=== PATIENT | female | born 1970 | race Asian ===

== ENCOUNTER 2017-02-07 10:16 | Inpatient (IN) | payer OTHER ==
[~2017-02-07] VITALS: Ht 152.4 cm; Wt 88.8 kg
[2017-02-07] MEDS ORDERED: ALBUTEROL/IPRATROPIUM 2.5MG/0.5MG, 3 ML NPPB ONE ×2 (11:00→12:30)
[2017-02-07] MEDS ORDERED: SODIUM CHLORIDE FLUSH 10ML SYR IVF ONE (11:00)
[2017-02-07] MEDS ORDERED: SODIUM CHLORIDE 0.9% 1,000ML IVBOLUS ONE (11:00)
[2017-02-07 11:45] LABS: HEMOGLOBIN 14.7 g/dL (11.7-16.4); WHITE BLOOD COUNT 18.5 x10^3/uL (3.4-10)
[2017-02-07 11:54] LABS: BLOOD UREA NITROGEN 12 mg/dL (7-18)
[2017-02-07 11:59] LABS: DIFF TOTAL CELLS COUNTED 100 CELL DIFF
[2017-02-07] MEDS ORDERED: ETOMIDATE 40 MG/20 ML ONE (12:00)
[2017-02-07] MEDS ORDERED: VECURONIUM 10 MG ONE (12:00)
[2017-02-07] MEDS ORDERED: SUCCINYLCHOLINE 20 MG/ML, 10ML ONE (12:00)
[2017-02-07] MEDS ORDERED: PROPOFOL 10 MG/ML, 100ML IV ONE (12:00)
[2017-02-07] MEDS ORDERED: DEXTROSE 5% IV ONE (12:30)
[2017-02-07] MEDS ORDERED: MAGNESIUM SULFATE IV ONE (12:30)
[2017-02-07 12:34] LABS: VERIFY COUNTS? YES
[2017-02-07 12:35] LABS: ANISOCYTOSIS 1+; POLYCHROMASIA 1+
[2017-02-07] MEDS ORDERED: ALBUTEROL SULFATE 2.5 MG/3 ML NPPB ONE (14:00)
[2017-02-07] MEDS ORDERED: SIMV20TA3 PO (14:04)
[2017-02-07] MEDS ORDERED: LOSA50TA6 PO (14:04)
[2017-02-07] MEDS ORDERED: RACEPINEPHRINE INH 2.25%, 0.5ML ONE (15:07)
[2017-02-07] MEDS ORDERED: methylPREDNISolone SOD SUCC 125 MG/2 ML ONE (15:22)
[2017-02-07] MEDS ORDERED: ONDANSETRON 2MG/ML, 2ML ONE (15:26)
[2017-02-07] MEDS ORDERED: methylPREDNISolone SOD SUCC 125 MG/2 ML IVP ONE (16:00)
[2017-02-07] MEDS ORDERED: RACEPINEPHRINE INH 2.25%, 0.5ML NPPB ONE (16:00)
[2017-02-07] MEDS ORDERED: LORazepam 2 MG/ML, 1ML IVPush PRN (16:00)
[2017-02-07] MEDS ORDERED: ONDANSETRON 2MG/ML, 2ML IVPush PRN (16:00)
[2017-02-07] MEDS ORDERED: ONDANSETRON 2MG/ML, 2ML IVPush ONE (16:00)
[2017-02-07] MEDS ORDERED: OXYcodone IR 5MG TABLET PO PRN (16:00)
[2017-02-07] MEDS ORDERED: ACETAMINOPHEN 325 MG TABLET PO PRN (16:00)
[2017-02-07] MEDS ORDERED: morphine SULFATE 10 MG/ML, 1ML IVPush PRN (16:00)
[2017-02-07 16:15] LABS: ABG COLLECTION SITE LEFT RADIAL; COLLATERAL CIRCULATION TESTING NORMAL
[2017-02-07] MEDS ORDERED: ENOXAPARIN 40 MG/0.4 ML ONE (16:38)
[2017-02-07 16:42] LABS: ASPARTATE AMINO TRANSFERASE 11 U/L (15-37); IS PT STATUS REG ER OR PRE ER? YES
[2017-02-07] MEDS ORDERED: methylPREDNISolone SOD SUCC 125 MG/2 ML IVPush SCH (17:00)
[2017-02-07] MEDS ORDERED: ENALAPRILAT 1.25 MG/ML, 2ML ONE (17:42)
[2017-02-07] MEDS: ENALAPRILAT 1.25 MG/ML, 2ML IVPush PRN ×2 (17:45→21:11)
[2017-02-07] MEDS: DOXYCYCLINE 100 MG in DEXTROSE 5% 250 ML IV SCH (17:45)
[2017-02-07] MEDS: ENOXAPARIN 40 MG/0.4 ML SQ SCH (17:45)
[2017-02-07] MEDS ORDERED: LORazepam 2 MG/ML, 1ML ONE (18:02)
[2017-02-07] MEDS ORDERED: VECURONIUM 10 MG IVPush ONE ×2 (19:00→20:00)
[2017-02-07] MEDS ORDERED: ALBUTEROL/IPRATROPIUM 2.5MG/0.5MG, 3 ML NPPB SCH (19:00)
[2017-02-07] MEDS ORDERED: SUCCINYLCHOLINE 20 MG/ML, 10ML IVPush ONE (19:00)
[2017-02-07] MEDS ORDERED: ETOMIDATE 40 MG/20 ML IVPush ONE (19:00)
[2017-02-07] MEDS ORDERED: ALBUTEROL 0.5%, 20ML ONE (19:04)
[2017-02-07] MEDS: PROPOFOL 100 ML IV PRN ×3 (19:17→22:04)
[2017-02-07 19:21] LABS: ABG COLLECTION SITE LEFT RADIAL
[2017-02-07 19:22] LABS: COLLATERAL CIRCULATION TESTING NORMAL
[2017-02-07] MEDS ORDERED: FENTANYL PF 100 MCG/2ML ONE (19:27)
[2017-02-07] MEDS ORDERED: FENTANYL PF 100 MCG/2ML IVPush ONE (19:30)
[2017-02-07] MEDS ORDERED: VECURONIUM 50 MG in SODIUM CHLORIDE 0.9% 250 ML IV PRN ×2 (19:51→20:00)
[2017-02-07] MEDS ORDERED: LIDOCAINE-MPF 1%, 2ML ENDO PRN (20:00)
[2017-02-07] MEDS ORDERED: PHARMACY MAY ADJ FOR RENAL FX MC SCH (20:00)
[2017-02-07] MEDS ORDERED: ALBUTEROL/IPRATROPIUM 2.5MG/0.5MG, 3 ML INLINE SCH (20:00)
[2017-02-07] MEDS: SODIUM CHLORIDE FLUSH 10ML SYR IVF SCH (21:00)
[2017-02-07] MEDS: SIMVASTATIN 20 MG TABLET PO SCH (21:00)
[2017-02-07] MEDS: FAMOTIDINE 20 MG/2 ML IVPush SCH (21:12)
[2017-02-07] MEDS: SODIUM CHLORIDE 0.9% 1,000 ML IV SCH (21:14)
[2017-02-07] MEDS: FENTANYL PF 2,500 MCG in SODIUM CHLORIDE 0.9% 200 ML IV PRN (21:34)
[2017-02-07] MEDS: ALBUTEROL SULFATE 2.5 MG/3 ML NPPB SCH (22:45)
[2017-02-07] MEDS ORDERED: SODIUM BICARB 8.4%, 50ML SYRINGE ONE (23:27)
[2017-02-07] MEDS ORDERED: SODIUM BICARB 8.4%, 50ML SYRINGE IVPush ONE (23:30)
[2017-02-07] MEDS: methylPREDNISolone SOD SUCC 125 MG/2 ML IVPush SCH (23:50)
[2017-02-08 00:19] LABS: DAU SCREEN DISCLAIMER
[2017-02-08 00:43] LABS: RAPID INFLUENZA A Negative (Negative); RAPID INFLUENZA B Negative (Negative)
[2017-02-08] MEDS: ALBUTEROL SULFATE 2.5 MG/3 ML NPPB SCH ×7 (03:00→22:18)
[2017-02-08 03:56] VITALS: BP 159/86
[2017-02-08] MEDS: methylPREDNISolone SOD SUCC 125 MG/2 ML IVPush SCH ×4 (05:21→22:43)
[2017-02-08 06:10] LABS: HEMATOCRIT 40.2 % (34.6-47.8); HEMOGLOBIN 13.7 g/dL (11.7-16.4); WHITE BLOOD COUNT 18.8 x10^3/uL (3.4-10)
[2017-02-08 06:11] LABS: ABG COLLECTION SITE RIGHT RADIAL; COLLATERAL CIRCULATION TESTING NORMAL
[2017-02-08] MEDS: DOXYCYCLINE 100 MG in DEXTROSE 5% 250 ML IV SCH ×2 (06:26→17:08)
[2017-02-08 06:31] LABS: DIFF TOTAL CELLS COUNTED 100 CELL DIFF
[2017-02-08] MEDS: PROPOFOL 100 ML IV PRN ×5 (06:31→22:43)
[2017-02-08 06:32] LABS: ANISOCYTOSIS 1+; BLOOD UREA NITROGEN 16 mg/dL (7-18); VERIFY COUNTS? YES
[2017-02-08 06:37] LABS: ASPARTATE AMINO TRANSFERASE 17 U/L (15-37)
[2017-02-08] MEDS: FAMOTIDINE 20 MG/2 ML IVPush SCH ×2 (08:41→20:32)
[2017-02-08] MEDS: SODIUM CHLORIDE FLUSH 10ML SYR IVF SCH ×2 (08:48→20:32)
[2017-02-08] MEDS: LOSARTAN 50MG TABLET PO SCH (08:51)
[2017-02-08] MEDS: SENNA/DOCUSATE TABLET PO SCH (08:51)
[2017-02-08] MEDS: SODIUM CHLORIDE 0.9% 1,000 ML IV SCH (09:41)
[2017-02-08] MEDS: ENOXAPARIN 40 MG/0.4 ML SQ SCH (17:08)
[2017-02-08] MEDS: SIMVASTATIN 20 MG TABLET PO SCH (20:32)
[2017-02-09] MEDS: ALBUTEROL SULFATE 2.5 MG/3 ML NPPB SCH ×5 (02:58→22:33)
[2017-02-09 03:30] VITALS: BP 112/51
[2017-02-09] MEDS: SODIUM CHLORIDE 0.9% 1,000 ML IV SCH ×2 (03:33→16:24)
[2017-02-09 04:35] LABS: ABG COLLECTION SITE RIGHT RADIAL; COLLATERAL CIRCULATION TESTING NORMAL
[2017-02-09 04:38] LABS: HEMATOCRIT 34.5 % (34.6-47.8); HEMOGLOBIN 11.6 g/dL (11.7-16.4)
[2017-02-09] MEDS: DOXYCYCLINE 100 MG in DEXTROSE 5% 250 ML IV SCH ×2 (04:55→16:24)
[2017-02-09] MEDS: methylPREDNISolone SOD SUCC 125 MG/2 ML IVPush SCH ×4 (04:55→22:28)
[2017-02-09] MEDS: PROPOFOL 100 ML IV PRN (05:22)
[2017-02-09] MEDS: LOSARTAN 50MG TABLET PO SCH (08:02)
[2017-02-09] MEDS: FAMOTIDINE 20 MG/2 ML IVPush SCH ×2 (08:02→20:35)
[2017-02-09] MEDS: SENNA/DOCUSATE TABLET PO SCH (08:02)
[2017-02-09] MEDS: SODIUM CHLORIDE FLUSH 10ML SYR IVF SCH ×2 (08:03→20:35)
[2017-02-09] MEDS: CEFTRIAXONE PMX 2GM/50ML 50 ML IVPB SCH (09:50)
[2017-02-09] MEDS: ENOXAPARIN 40 MG/0.4 ML SQ SCH (16:24)
[2017-02-09] MEDS: SIMVASTATIN 20 MG TABLET PO SCH (20:35)
[2017-02-10] MEDS: FENTANYL PF 2,500 MCG in SODIUM CHLORIDE 0.9% 200 ML IV PRN (00:05)
[2017-02-10] MEDS: ALBUTEROL SULFATE 2.5 MG/3 ML NPPB SCH ×6 (02:20→22:39)
[2017-02-10 04:01] VITALS: BP 133/54
[2017-02-10 05:24] LABS: ABG COLLECTION SITE RIGHT RADIAL; COLLATERAL CIRCULATION TESTING NORMAL
[2017-02-10] MEDS: DOXYCYCLINE 100 MG in DEXTROSE 5% 250 ML IV SCH ×2 (05:48→18:06)
[2017-02-10] MEDS: methylPREDNISolone SOD SUCC 125 MG/2 ML IVPush SCH ×4 (05:48→23:08)
[2017-02-10] MEDS: SODIUM CHLORIDE 0.9% 1,000 ML IV SCH ×2 (05:50→20:42)
[2017-02-10 05:57] LABS: HEMATOCRIT 34.6 % (34.6-47.8); HEMOGLOBIN 11.9 g/dL (11.7-16.4); WHITE BLOOD COUNT 17.9 x10^3/uL (3.4-10)
[2017-02-10] MEDS ORDERED: RACEPINEPHRINE INH 2.25%, 0.5ML ONE (09:26)
[2017-02-10] MEDS: CEFTRIAXONE PMX 2GM/50ML 50 ML IVPB SCH (09:41)
[2017-02-10] MEDS: SODIUM CHLORIDE FLUSH 10ML SYR IVF SCH ×2 (09:45→20:42)
[2017-02-10] MEDS: FAMOTIDINE 20 MG/2 ML IVPush SCH ×2 (09:45→20:42)
[2017-02-10] MEDS: SENNA/DOCUSATE TABLET PO SCH (09:46)
[2017-02-10] MEDS: LOSARTAN 50MG TABLET PO SCH (09:47)
[2017-02-10] MEDS: ENOXAPARIN 40 MG/0.4 ML SQ SCH (18:10)
[2017-02-10] MEDS: SIMVASTATIN 20 MG TABLET PO SCH (20:41)
[2017-02-11] MEDS: ALBUTEROL SULFATE 2.5 MG/3 ML NPPB SCH ×6 (02:15→22:34)
[2017-02-11 03:58] VITALS: BP 151/83
[2017-02-11] MEDS: methylPREDNISolone SOD SUCC 125 MG/2 ML IVPush SCH ×3 (05:05→18:44)
[2017-02-11] MEDS: DOXYCYCLINE 100 MG in DEXTROSE 5% 250 ML IV SCH ×2 (05:05→18:44)
[2017-02-11 05:47] LABS: HEMATOCRIT 37.5 % (34.6-47.8); HEMOGLOBIN 12.7 g/dL (11.7-16.4); WHITE BLOOD COUNT 11.2 x10^3/uL (3.4-10)
[2017-02-11 06:03] LABS: ABG COLLECTION SITE RIGHT RADIAL; COLLATERAL CIRCULATION TESTING NORMAL
[2017-02-11 08:44] LABS: BLOOD UREA NITROGEN 17 mg/dL (7-18)
[2017-02-11 08:47] LABS: ASPARTATE AMINO TRANSFERASE 14 U/L (15-37)
[2017-02-11] MEDS: LOSARTAN 50MG TABLET PO SCH (09:06)
[2017-02-11] MEDS: SENNA/DOCUSATE TABLET PO SCH (09:06)
[2017-02-11] MEDS: SODIUM CHLORIDE FLUSH 10ML SYR IVF SCH ×2 (09:06→20:43)
[2017-02-11] MEDS: FAMOTIDINE 20 MG/2 ML IVPush SCH ×2 (09:07→20:42)
[2017-02-11] MEDS: CEFTRIAXONE PMX 2GM/50ML 50 ML IVPB SCH (11:10)
[2017-02-11 19:20] VITALS: BP 147/77
[2017-02-11 19:53] VITALS: BP 138/72
[2017-02-11] MEDS: SIMVASTATIN 20 MG TABLET PO SCH (20:42)
[2017-02-11] MEDS: ENOXAPARIN 40 MG/0.4 ML SQ SCH (20:43)
[2017-02-11 21:12] VITALS: BP 144/84
[2017-02-12] MEDS: methylPREDNISolone SOD SUCC 125 MG/2 ML IVPush SCH ×2 (01:14→08:22)
[2017-02-12] MEDS: ALBUTEROL SULFATE 2.5 MG/3 ML NPPB SCH ×6 (02:55→21:40)
[2017-02-12 03:48] VITALS: BP 137/75
[2017-02-12 06:04] LABS: ABG COLLECTION SITE LEFT RADIAL; COLLATERAL CIRCULATION TESTING NORMAL
[2017-02-12 06:08] LABS: HEMATOCRIT 39.4 % (34.6-47.8); HEMOGLOBIN 13.3 g/dL (11.7-16.4); WHITE BLOOD COUNT 10.2 x10^3/uL (3.4-10)
[2017-02-12 08:21] VITALS: BP 119/68
[2017-02-12] MEDS: DOXYCYCLINE 100 MG in DEXTROSE 5% 250 ML IV SCH (08:22)
[2017-02-12] MEDS: SENNA/DOCUSATE TABLET PO SCH (08:22)
[2017-02-12] MEDS: LOSARTAN 50MG TABLET PO SCH (08:22)
[2017-02-12] MEDS: SODIUM CHLORIDE FLUSH 10ML SYR IVF SCH ×2 (08:23→20:54)
[2017-02-12] MEDS: FAMOTIDINE 20 MG/2 ML IVPush SCH ×2 (08:23→20:54)
[2017-02-12] MEDS: AMOXICILLIN/CLAV 875-125MG TABLET PO SCH ×2 (12:26→20:54)
[2017-02-12 15:05] VITALS: BP 141/85
[2017-02-12 19:04] VITALS: BP 137/78
[2017-02-12] MEDS: SIMVASTATIN 20 MG TABLET PO SCH (20:53)
[2017-02-12] MEDS: ENOXAPARIN 40 MG/0.4 ML SQ SCH (20:54)
[2017-02-13 01:58] VITALS: BP 147/81
[2017-02-13] MEDS: ALBUTEROL SULFATE 2.5 MG/3 ML NPPB SCH ×4 (03:00→15:20)
[2017-02-13 07:45] VITALS: BP 156/95
[2017-02-13] MEDS: AMOXICILLIN/CLAV 875-125MG TABLET PO SCH (09:08)
[2017-02-13] MEDS: FAMOTIDINE 20 MG/2 ML IVPush SCH (09:09)
[2017-02-13] MEDS: SENNA/DOCUSATE TABLET PO SCH (09:09)
[2017-02-13] MEDS: SODIUM CHLORIDE FLUSH 10ML SYR IVF SCH (09:09)
[2017-02-13] MEDS: LOSARTAN 50MG TABLET PO SCH (09:09)
[2017-02-13] MEDS ORDERED: CEFD300C37 PO (10:45)
[2017-02-13] MEDS ORDERED: DOXY100T10 PO (10:45)
[2017-02-13] MEDS ORDERED: PRED5TAB PO (10:45)
[2017-02-13] MEDS ORDERED: ALBU2.5V NPPB (10:45)
[2017-02-13 15:00] VITALS: BP 142/86
[2017-02-13] MEDS ORDERED: PNEUMOCOCCAL 23 VACCINE IM-VACC ONE (17:30)
== END 2017-02-13 18:51 | disposition home or self-care (01) | DRG 208 ==
LOC: ED 12:10 → EDIP 15:46 → ICU 20:18 → 4WST 02-11 12:19
PROVIDERS: ADMIT Internal Medicine; ATTEND Internal Medicine
PROC: 0BH17EZ Insertion of Endotracheal Airway into Trachea, Via Natural or Artificial Opening (ICD-10-PCS; principal; 2017-02-07)
PROC: 5A1945Z Respiratory Ventilation, 24-96 Consecutive Hours (ICD-10-PCS; 2017-02-07)
PROC: 5A09357 Assistance with Respiratory Ventilation, Less than 24 Consecutive Hours, Continuous Positive Airway Pressure (ICD-10-PCS; 2017-02-07)
DX: J96.01 Acute respiratory failure with hypoxia (principal); Z99.11 Dependence on respirator [ventilator] status; J45.902 Unspecified asthma with status asthmaticus; J44.1 Chronic obstructive pulmonary disease with (acute) exacerbation; R65.10 Systemic inflammatory response syndrome (SIRS) of non-infectious origin without acute organ dysfunction; D72.825 Bandemia; I11.9 Hypertensive heart disease without heart failure; E66.9 Obesity, unspecified; Z68.38 Body mass index [BMI] 38.0-38.9, adult; E78.00 Pure hypercholesterolemia, unspecified; Z77.22 Contact with and (suspected) exposure to environmental tobacco smoke (acute) (chronic); Z82.49 Family history of ischemic heart disease and other diseases of the circulatory system; Z83.3 Family history of diabetes mellitus
CPT/HCPCS: 31500; 36415; 36600; 71010; 80048; 80053; 80076; 80307; 82040; 82803; 82805; 83605; 83735; 84145; 84443; 84478; 84484; 85025; 87040; 87070; 87081; 87205; 87400; 90732; 93005; 93306; 94002; 94003; 94640; 94660; 96361; 96365; 96367; 96372; 96375; J0696; J1650; J2405; J2704; J3010; J3475; J7060; J7613; J7620; G0479; J0330; J2930; J7030; J7050; J7512; S0028

== ENCOUNTER → 2017-03-19 | Emergency (ER) | payer OTHER ==
[~2017-03-19] VITALS: Ht 152.4 cm; Wt 84.6 kg
[~2017-03-19] MED LIST: ACETAMINOPHEN 325 MG TABLET ONE; ACETAMINOPHEN 325 MG TABLET PO ONE; ALBU2.5V NPPB; ALBUTEROL SULFATE 2.5 MG/3 ML NPPB ONE; ALBUTEROL SULFATE 2.5 MG/3 ML ONE; ALBUTEROL/IPRATROPIUM 2.5MG/0.5MG, 3 ML NPPB ONE; ALBUTEROL/IPRATROPIUM 2.5MG/0.5MG, 3 ML ONE; AZITHROMYCIN 500 MG in SODIUM CHLORIDE 0.9% 250 ML IV ONE; CEFD300C37 PO; CEFTRIAXONE PMX 1GM/50ML 50 ML IV ONE; CEFTRIAXONE PMX 1GM/50ML 50 ML ONE; DOXY100T10 PO; LOSA50TA6 PO; OSELTAMIVIR 75 MG CAPSULE PO ONE; PRED5TAB PO; SIMV20TA3 PO; SODIUM CHLORIDE 0.9% 1,000ML IVBOLUS ONE
[2017-03-20 01:19] LABS: BASOPHILS % (AUTO) 0 % (0-1); EOSINOPHILS # (AUTO) 0.01 x10^3/uL (0-0.4); EOSINOPHILS % (AUTO) 0 % (1-7); LYMPHOCYTES # (AUTO) 0.81 x10^3/uL (1-3.4); LYMPHOCYTES % (AUTO) 7 % (22-44); MD NO; MEAN CORPUSCULAR HEMOGLOBIN 27.9 pg (27.0-34.8); MEAN CORPUSCULAR HGB CONC 33.4 g/dL (32.4-35.8); MEAN CORPUSCULAR VOLUME 83.5 fL (80-100); MEAN PLATELET VOLUME 7.1 fL (7.4-10.4); MONOCYTES # (AUTO) 0.36 x10^3/uL (0.2-0.8); MONOCYTES % (AUTO) 3 % (2-9); NEUTROPHILS # (AUTO) 10.43 x10^3/uL (1.8-6.8); NEUTROPHILS % (AUTO) 90 % (42-75); PLATELET COUNT 313 x10^3/uL (130-400); RED BLOOD COUNT 4.83 x10^6/uL (3.82-5.3); RED CELL DISTRIBUTION WIDTH 15.6 % (9.6-15.2)
[2017-03-20 01:28] LABS: ANION GAP 8 mmol/L (5-15); CALCIUM 9.1 mg/dL (8.5-10.1); CHLORIDE 104 mmol/L (98-107); CREATININE 0.82 mg/dL (0.55-1.02)
[2017-03-20 05:17] LABS: RAPID INFLUENZA A POSITIVE (Negative); RAPID INFLUENZA B Negative (Negative)
[2017-03-20 06:48] VITALS: BP 133/59
== END ==
LOC: ED 23:59
DX: J45.31 Mild persistent asthma with (acute) exacerbation (principal); E78.5 Hyperlipidemia, unspecified; I10 Essential (primary) hypertension; Z90.710 Acquired absence of both cervix and uterus
CPT/HCPCS: 36415; 71046; 80048; 82040; 83605; 84145; 85025; 85379; 87040; 87400; 94640; 96361; 96365; 96368; J0456; J0696; J7613; J7620; J7030; J7050; J7512